=== PATIENT | male | born 1960 | race Caucasian/White ===

== ENCOUNTER 2017-10-11 13:34 | Emergency (ER) | payer SELFPAY | END 2017-10-11 15:22 | disposition home or self-care (01) | LOC: ER 13:34 | DX: I88.8 Other nonspecific lymphadenitis (principal); H92.01 Otalgia, right ear; J41.0 Simple chronic bronchitis; F10.10 Alcohol abuse, uncomplicated; Y90.9 Presence of alcohol in blood, level not specified; Z90.89 Acquired absence of other organs | CPT/HCPCS: 99283; 99284 ==